=== PATIENT | female | born 1960 | race Caucasian/White ===

== ENCOUNTER 2017-01-11 19:23 | Emergency (ER) | payer OTHER ==
[2017-01-11 19:34] VITALS: BP 130/85; BMI 29.7
[2017-01-11] MEDS ORDERED: DEMEROL INJ IM ONE (20:39)
[2017-01-11] MEDS ORDERED: PHENERGAN INJ 25 MG IM ONE (20:40)
--- NOTE | 2017-01-11 20:49 | DR.GENAD ---
HPI - PCP Primary Care Physician: ISREAL - Complaint/Symptoms Chief Complaint Doctors Comments: Patient states she ws trying to get her dog's puppies when she stepped wrong and felt something pop in her left knee with severe pain. States she has not been able to put weight on her left knee or walk on her left knee since the episode. States she fell a few weeks ago and has seen her regular doctor and he did an MRI of her knee and she was told she had a problem with the meniscus in her left knee and she was scheduled to see a bone doctor next . States the pain is 5 of 10.. She has a soft knee brace that she has been wearing. States she has a knee brace at home but does not have a knee immobilizer. She is complaining of left hip pain. States they x-ray her left hip before. Chief Complaint:: HURT L KNEE - Nurses notes reviewed Nurses Notes Review: Yes - Source History Provided: Patient - Mode of Arrival Mode of Arrival: Ambulatory - Timing Onset of Chief Complaint: 01/11/17 Came on: Suddenly - Duration Duration: Constant How lon Duration: Hours - Location Location: left knee pain - Severity Severity: Moderate, Severe - Modifying Factors Worsens:: movement and walking Improves:: rest PMH - PMH Past Medical History: Yes Past Medical History: Anxiety, Depression, Hypertension, Hypothyroidism, Sleep Apnea Past Surgical History: Yes Surgical History: Abdominal Surgery, BROWN SOURER Surgery, Ortho Surgery, Tonsillectomy Past Surgical History Comment: CERVICAL FUSION GASTRIC SLEEVE - Family History History of Family Medical Conditions: Yes Family Medical History: Cancer, Coronary Artery Disease, Hypertension - Social History Does patient currently use any type of tobacco product: No Have you used tobacco products in the last 12 months: No Type of Tobacco Use: None Does any household member use tobacco: No Alcohol Use: Occasionally Do you use any recreational Drugs:: No Lives With: Alone Lives Where: Home - infectious screening In the last 2 months have you had wt loss of >10#?: NO Have you had fever, night sweats or hemotysis?: No Have you traveled outside the country in the last 6 months?: No Isolation: Standard ROS - Review of Systems Constitutional: No Symptoms Reported. negative: See HPI, Chills, Diaphoresis, Fever, Malaise, Weakness, Irritable, Fatigue, Loss of Appetite, Other Eyes: No Symptoms Reported. negative: See HPI, Eye Pain, Blurred Vision, Tearing, Discharge, Photophobia, Diplopia, Other ENTM: No Symptoms Reported. negative: See HPI, Ear Pain, Ear Discharge, Pulling on Ears, Hearing Loss, Nose Pain, Nose Discharge, Epistaxis, Nose Congestion, Mouth Pain, Mouth Swelling, Loose Teeth, Drooling, Throat Pain, Throat Swelling, Ear Foreign Body Respiratoy: No Symptoms Reported. negative: See HPI, Productive Cough, Non- Productive Cough, Moist Cough, Dry Cough, Hacking Cough, Barking Cough, Brassy Cough, Orthopnea, Short of Breath, Stridor, Wheezing, Hemoptysis, Other Cardiovascular: No Symptoms Reported. negative: See HPI, Chest Pain, Edema, Palpitations, Syncope, Cyanosis, Skin Mottling, Other Gastrointestinal/Abdominal: No Symptoms Reported. negative: See HPI, Abdominal Pain, Constipation, Diarrhea, Nausea, Vomiting, Food Intolerance, Other Genitourinary: No Symptoms Reported. negative: See HPI, Discharge, Dysuria, Frequency, Hematuria, Pain, Bleeding, Other Neurological: No Symptoms Reported, Problems Walking (left knee pain) Musculoskeletal: No Symptoms Reported, Left, Knee Integumentary: No Symptoms Reported Hematologic/Lymphatic: No Symptoms Reported Endocrine: No Symptoms Reported Psychiatric: No Symptoms Reported. negative: See HPI, Anxiety, Depression, Hallucinations, Excessive crying, Suicidal, Other PE - Vital Signs Vitals: Pulse Rate 77 Respiratory Rate 18 Blood Pressure 130/85 O2 Sat by Pulse Oximetry 99 - General Limitations: No Limitations. negative: Language Barrier, Altered Mental Status , Physical Limitation, Other General Appearance: Alert, In Distress (moderate) - Head Head Exam: Normal Inspection, Atraumatic, Normocephalic - Eyes Eye exam: Normal Appearance, PERRL, EOMI. negative: Scleral Icterus, Conjunctival Injection, Nystagmus, Miosis, Mydrasis, Periorbital Swelling, Periorbital Tenderness, Other - ENT ENT Exam: Normal Exam, Normal Oropharynx, Normal External Ear Exam, Mucous Membranes Moist, TM's Normal Bilaterally External Ear Exam: Normal External Inspection TM/Canal Exam: Bilateral Normal Nose Exam: Normal Nose Exam. negative: Sinus Tenderness, Nasal Deviation, Crepitus, Septal Hematoma, Laceration, Abrasion, Other Mouth Exam: Normal Inspection. negative: Drooling, Trismus, Lip Swelling, Tongue Elevation, Tongue Swelling, Laceration, Other Throat Exam: Normal Inspection. negative: Tonsillar Erythema, Tonsillomegaly, Tonsillar Exudate, R Peritonsillar Mass, L Peritonsillar Mass, Muffled Voice, Other - Neck Neck Exam: Normal Inspection, Full ROM, Trachea Midline. negative: Tenderness, Meningismus, Lymphadenopathy, Thyromegaly, Other - Chest Chest Inspection: Normal Inspection, Symmetric Chest Wall Rise. negative: Tenderness, Rash, Abscess, Other - Respiratory Respiratory Exam: Normal Lung Sounds Bilat. negative: Accessory Muscle Use, Chest Wall Tenderness, Prolonged Expiratory Phase, Respiratory Distress, Stridor , Other Respiratory Exam: Bilateral Clear to Auscultation - Cardiovascular Cardiovascular Exam: Regular Rate, Normal Rhythm, Normal Heart Sounds. negative : Bradycardia, Tachycardia, Irregular Rhythm, Systolic Murmur, Diastolic Murmur , Rubs, Gallop, Clicks, JVD, +S1, +S2, +S3, +S4, Other - Abdominal Exam Abdominal Exam: Normal Inspection, Normal Bowel Sounds, Soft. negative: Distention, Tenderness, Guarding, Rebound, Rigidity, Dimnished Bowel Sounds, Hyperactive Bowel Sounds, Hypoactive Bowel Sounds, Organomegaly, Trauma, Incision, Ascites, Mass, Bruit, Pulsatile Mass, Hernia, Other Abdominal Tenderness: negative: RUQ, RLQ, LUQ, LLQ, Epigastrium, Suprapubic, Diffuse, Mild, Moderate, Severe, Other - Extremities Extremities Exam: Normal Inspection, Full ROM, Tenderness (left knee tender on movement; left hip tender on palpation), Normal Capillary Refill. negative: Edema, Joint Swelling, Calf Tenderness, Other - Back Back Exam: Normal Inspection, Full ROM. negative: Tenderness, (R) CVA Tenderness, (L) CVA Tenderness, Muscle Spasm, Paraspinal Tenderness, Vertebral Tenderness, Rashes, (R) Sciatic Notch Tenderness, (L) Sciatic Notch Tendern, (R ) Straight Leg Raise, (L) Straight Leg Raise, Other - Neurologic Neurological Exam: Alert, Oriented X3, CN II-XII Intact, Normal Gait, Reflexes Normal. negative: Motor Sensory Deficit, Other - Psychiatric Psychiatric Exam: Normal Affect, Normal Mood. negative: Depressed, Agitated, Anxious, Flat Affect, Manic, Homicidal Ideation, Suicidal Ideation, Other - Skin Skin Exam: Warm, Dry, Intact, Normal Color. negative: Rash, Cyanosis, Diaphoresis, Erythema, Pallor, Mottled, Other ROR - Labs Reviewed Laboratory Results Reviewed?: Yes (all x-ray results reviewed and discussed with gustavo) - XRAY XRAY Interpreted by: Radiologist (CT left Knee: Tear of medial mediscal posterior horn and root; small joint effusion.no evidence of fractkure or subluxation of the left kneee) XRAY Findings: CT left hip: No evidence of acuate pelvic or hip fracture. Mild degenerati - Diagnosis Discharge Problem: Acute meniscal tear of left knee Qualifiers: Encounter type: subsequent encounter Qualified Code(s): S83.207D - Unspecified tear of unspecified meniscus, current injury, left knee, subsequent encounter Left knee pain Qualifiers: Chronicity: chronic Qualified Code(s): M25.562 - Pain in left knee; G89.29 - Other chronic pain Diverticulosis of colon Qualifiers: Diverticulosis bleeding: diverticulosis without bleeding Qualified Code(s): K57.30 - Diverticulosis of large intestine without perforation or abscess without bleeding - Discharge Plan Disposition: HOME, SELF-CARE Condition: Stable Prescriptions: Hydrocodone-Acet 5 mg/325 mg [NORCO 5 MG/325 MG *] 1 tab PO Q6H PRN #12 tab PRN Reason: Pain Naproxen [NAPROSYN 500 MG *] 500 mg PO BID PRN #60 tab PRN Reason: Pain/Inflammation - Follow ups/Referrals Follow ups/Referrals: [facility],None [Primary Care Provider] - 3 days ELISSA ZARATE [STAFF PHYSICIAN] - 3 days BRENDON CHAPMAN [CONSULTING PHYSICIAN] - 3 days - Instructions Instructions: Meniscus Injury, Knee Pain, Knee Immobilizer
[2017-01-11] MEDS ORDERED: PHENERGAN INJ 25 MG ONE (20:57)
[2017-01-11] MEDS ORDERED: DEMEROL INJ ONE (20:58)
--- NOTE | 2017-01-11 21:51 | CT ---
CT pelvis without contrast Indication: Left hip pain. Fall 1 month ago. Technique: CT images of the pelvis were obtained without contrast. Automatic exposure control was ut ilized. Findings: No cortical disruption or malalignment identified, specifically involving the left hip the re are mild degenerative changes of the hips and pubic symphysis. There is no pubic symphyseal or SI joint diastasis. A few scattered colonic diverticula are noted. The pelvic soft tissues are otherwise grossly unremar kable. Impression: No evidence of acute pelvic or hip fracture. Mild degenerative changes of the hips and p ubic symphysis. Colonic diverticulosis Reported By:
--- NOTE | 2017-01-11 21:56 | CT ---
CT left knee without contrast Indication: Left knee pain. Fall 1 month ago. Comparison: None Technique: CT images of the left knee were obtained without contrast. Automatic exposure control was utilized. Findings: There is mild tricompartmental degenerative arthrosis of the knee, most significant within the medial femorotibial compartment. There is generalized osteopenia. No acute fracture or subluxat ion is identified. The ACL, PCL, MCL, major lateral stabilizers, and extensor mechanism are grossly intact, within the limitations of a noncontrast study. There is attenuation with irregularity of the medial meniscal posterior horn and root; there is mild extrusion of the meniscal body into the medi al gutter. No obvious lateral meniscal tear identified. There is a small joint effusion. Impression: No evidence for acute fracture or subluxation of the left knee. Tear of the medial meniscal posterior horn and root, of indeterminate chronicity. Recommend MRI of t he knee for further evaluation. Small joint effusion Mild tricompartmental DJD Reported By:
== END 2017-01-11 22:40 | disposition home or self-care (01) ==
LOC: ER 19:42
DX: S83.207D Unspecified tear of unspecified meniscus, current injury, left knee, subsequent encounter (principal); M25.562 Pain in left knee; G89.29 Other chronic pain; K57.30 Diverticulosis of large intestine without perforation or abscess without bleeding; K57.90 Diverticulosis of intestine, part unspecified, without perforation or abscess without bleeding; W19.XXXA Unspecified fall, initial encounter; Y92.9 Unspecified place or not applicable
CPT/HCPCS: 72192; 73700; 96372; 99283; J2175; J2550